=== PATIENT | female | born 1980 | race Caucasian/White ===

== ENCOUNTER 2016-10-01 13:00 | Emergency (ER) | payer OTHER, MEDICAID ==
[~2016-10-01] VITALS: Ht 160 cm; Wt 60.0 kg
[~2016-10-01 13:00] MED LIST: IBUP-232 PO
[2016-10-01 13:01] VITALS: BP 150/84; PULSE 89; RESP 15; TEMP 98.3; O2SAT 99
--- NOTE | 2016-10-01 13:54 | PD ---
HPI . right wrist pain Chief Complaint: Musculoskeletal Complaint Time Seen by Provider: 13:54 Travel History International Travel<30 days: No Contact w/Intl Traveler<30days: No Traveled to known affect area: No History of Present Illness HPI 36-year-old female with no past medical history of complaints of right wrist pain since yesterday. Patient was trying to do something in her children's room when she accidentally fell on an outstretched wrist. She is now reporting pain in the right wrist at the distal ulna. She says the pain is pretty intense with movement. She has had decreased swimming professor strength and has had difficulty doing chores and combing her hair. She is left handed dominant. PFS Past Medical History Arthritis: No Asthma: No Autoimmune Disease: No Blood Disorders: No Anxiety: Yes Depression: Yes Heart Rhythm Problems: No Cancer: No Cardiovascular Problems: No High Cholesterol: No Chemotherapy: No Chest Pain: No Congestive Heart Failure: No COPD: No Cerebrovascular Accident: No Diabetes: No Diminished Hearing: Yes GERD: No Glaucoma: No Genitourinary: Yes (UTI's) Headaches: No Hepatitis: Yes (HEP C) Hiatal Hernia: No Hypertension: Yes Immune Disorder: No Kidney Stones: No Musculoskeletal: No Neurologic: No Psychiatric: No Reproductive: Yes (05/21/13 hysterect for endometriosis) Respiratory: No Migraines: No Myocardial Infarction: No Radiation Therapy: No Renal Failure: No Seizures: No Sickle Cell Disease: No Ulcer: No : 2 Para: 2 Ovarian Cysts: No Past Surgical History Abdominal Surgery: No AICD: No Appendectomy: No Arteriovenous Shunt: No Cardiac Surgery: No Section: Yes Cholecystectomy: No Ear Surgery: No Endocrine Surgery: No Eye Surgery: No Genitourinary Surgery: Yes (RIGHT IHR 1981) Gynecologic Surgery: Yes (2 c-sections 2002, 2004) Hysterectomy: Yes Insulin Pump: No Joint Replacement: No Oral Surgery: Yes (tooth extractions) Pacemaker: No Thoracic Surgery: No Other Surgery: Yes (HERNIA REPAIR WHEN A BABY) Social History Alcohol Use: No Tobacco Use: Yes (1ppd) Substance Use: No Allergies-Medications (Allergen,Severity, Reaction): Coded Allergies: No Known Allergies (Verified , 10/27/14) Reported Meds & Prescriptions Reported Meds & Active Scripts Active Ibuprofen 800 Mg Tab 800 Mg PO TID Review of Systems General / Constitutional: No: Fever Eyes: No: Visual changes HENT: No: Headaches Cardiovascular: No: Chest Pain or Discomfort Respiratory: No: Shortness of Breath Gastrointestinal: No: Abdominal Pain Genitourinary: No: Dysuria Musculoskeletal: Positive: Pain (right wrist pain) Skin: No Rash Neurologic: No: Weakness Psychiatric: No: Depression Endocrine: No: Polydipsia Hematologic/Lymphatic: No: Easy Bruising Physical Exam Narrative GENERAL: AAO x 3, no acute distress, Well-nourished, well-developed patient. SKIN: Warm and dry. No visible rashes or bruising. HEAD: Normocephalic and atraumatic. EYES: No scleral icterus. No injection or drainage. ENT: No nasal drainage noted. Airway patent. NECK: Supple, trachea midline. No JVD. CARDIOVASCULAR: Regular rate and rhythm without murmurs, gallops, or rubs. RESPIRATORY: Breath sounds equal bilaterally. No accessory muscle use. No rhonchi or rales. GASTROINTESTINAL: Abdomen soft, non-tender, nondistended. EXTREMITIES: No cyanosis. Right distal wrist ulna slightly edematous. There is point tenderness present at right distal ulna. Range of motion is diminished secondary pain. Pulses are intact. Sensation is normal. Record Producer strength is diminished. BACK: Nontender without obvious deformity. No CVA tenderness. PSYCH: AAO x 3, normal affect. Data Data Last Documented VS Vital Signs Date Time Temp Pulse Resp B/P Pulse Ox O2 Delivery O2 Flow Rate FiO2 10/01/16 13:01 98.3 89 15 150/84 99 Orders Wrist, Complete ([id number]) (10/01/16 13:58) Ibuprofen (Motrin) (10/01/16 14:00) ^ Alireza Bandage (10/01/16 15:10) [facility] Medical Decision Making Medical Screen Exam Complete: Yes Emergency Medical Condition: Yes Medical Record Reviewed: Yes Differential Diagnosis Wrist contusion, wrist fracture, less likely dislocation, tendinitis Narrative Course 36-year-old female with no past medical history of complaints of right wrist pain since yesterday. Patient was trying to do something in her children's room when she accidentally fell on an outstretched wrist. She is now reporting pain in the right wrist at the distal ulna. She says the pain is pretty intense with movement. She has had decreased swimming professor strength and has had difficulty doing chores and combing her hair. She is left handed dominant. Patient seen and examined. She has some point tenderness to the right distal ulna. There is also some edema to this area. I will go ahead and check x-ray to rule out any bony abn. X-ray resulted and negative for acute deformity or fracture. Alireza wrap provided. Ibuprofen Rx provided. Advise RICE Discussed f/u with PCP and Hand if problems persist. Patient verbalized understanding of instructions, questions were answered, and thanked me for their care. I advised them if their condition worsens, please return to the nearest emergency room for further care. Diagnosis Primary Impression: Wrist pain, right Patient Instructions: General Instructions Additional Instructions: Rest the affected area as much as possible. Do this for the next 2-3 days. Ice this area for 15-20 minutes at a time. You can do this every hour or as much as tolerated. Keep this area compressed (alireza bandage) as tolerated. Elevate this area. Use ibuprofen as needed for pain and inflammation. Please return to emergency department if your symptoms return or worsen. Follow up with your primary care provider. Take medications as prescribed. Med/Other Pt SpecificInfo: Prescription(s) given Scripts Ibuprofen 800 Mg [id number] Mg PO TID #21 TAB Prov:Carlos A Trejo MD 10/01/16 Disposition: 01 DISCHARGE HOME Condition: Stable Anitha Urias October 01, 2016 13:54
[2016-10-01] MEDS ORDERED: IBUPROFEN 800 MG TAB PO ONE (14:00)
--- NOTE | 2016-10-01 15:06 | RADRPT ---
EXAM DATE/TIME: 10/01/2016 14:14 [facility] COMPARISON: No previous studies available for comparison. INDICATIONS : Right wrist pain after falling yesterday. MEDICAL HISTORY : None. SURGICAL HISTORY : None. ENCOUNTER: Initial ACUITY: 2 days PAIN SCORE: 8/10 LOCATION: Left lateral wrist. FINDINGS: Three view examination of the right wrist demonstrates no soft tissue swelling, dislocation, or fract ure. The carpal bones are in normal alignment. The joint spaces are maintained. Bony mineralizatio n is normal. CONCLUSION: Unremarkable examination of the right wrist. Surjit Eduardo MD on October 01, 2016 at 15:03 Board Certified Radiologist. This report was verified electronically.
[2016-10-01] MEDS ORDERED: IBUP800T23 PO (15:14)
== END 2016-10-01 15:32 | disposition home or self-care (01) ==
LOC: NEPK 13:00
DX: M25.531 Pain in right wrist (principal)
CPT/HCPCS: 73110; 99283

== ENCOUNTER 2016-10-04 14:23 | Emergency (ER) | payer OTHER, MEDICAID ==
[~2016-10-04] VITALS: Ht 160 cm; Wt 56.5 kg
[~2016-10-04 14:23] MED LIST changes: -IBUP-232 PO; +IBUP800T23 PO
--- NOTE | 2016-10-04 14:34 | PD ---
HPI Chief Complaint: Pain: Acute or Chronic Time Seen by Provider: 14:34 Travel History International Travel<30 days: No Contact w/Intl Traveler<30days: No Traveled to known affect area: No History of Present Illness HPI 36-year-old female presents to emergency Department with sudden onset pain, swelling, and erythema to the left dorsal lateral wrist and proximal hand since yesterday. Patient denies any specific injury or IV drug use. She states she woke up with it. She denies fever, chills, or other symptoms. She has decreased range of motion secondary to pain. She denies numbness or tingling. She denies any other current symptoms. No known drug allergies. Patient has history IV drug use and hepatitis, but currently not treated. PFSH Past Medical History Arthritis: No Asthma: No Autoimmune Disease: No Blood Disorders: No Anxiety: Yes Depression: Yes Heart Rhythm Problems: No Cancer: No Cardiovascular Problems: No High Cholesterol: No Chemotherapy: No Chest Pain: No Congestive Heart Failure: No COPD: No Cerebrovascular Accident: No Diabetes: No Diminished Hearing: Yes Gastrointestinal Disorders: No GERD: No Glaucoma: No Genitourinary: Yes (UTI's) Headaches: No Hepatitis: Yes (HEP C) Hiatal Hernia: No Heparin Induced Thrombocytopen: No Hypertension: No Immune Disorder: No Implanted Vascular Access Dvce: No Kidney Stones: No Musculoskeletal: No Neurologic: No Psychiatric: No Reproductive: Yes (05/21/13 hysterect for endometriosis) Respiratory: No Migraines: No Myocardial Infarction: No Radiation Therapy: No Renal Failure: No Seizures: No Sickle Cell Disease: No Ulcer: No : 2 Para: 2 Ovarian Cysts: No Past Surgical History Abdominal Surgery: No AICD: No Appendectomy: No Arteriovenous Shunt: No Cardiac Surgery: No Section: Yes Cholecystectomy: No Ear Surgery: No Endocrine Surgery: No Eye Surgery: No Genitourinary Surgery: Yes (RIGHT IHR 1981) Gynecologic Surgery: Yes (2 c-sections 2002, 2004) Hysterectomy: Yes Insulin Pump: No Joint Replacement: No Neurologic Surgery: No Oral Surgery: Yes (tooth extractions) Pacemaker: No Thoracic Surgery: No Other Surgery: Yes (HERNIA REPAIR WHEN A BABY) Social History Alcohol Use: No Tobacco Use: Yes (1ppd) Substance Use: No Allergies-Medications (Allergen,Severity, Reaction): Coded Allergies: No Known Allergies (Verified , 10/04/16) Reported Meds & Prescriptions Reported Meds & Active Scripts Active No Active Prescriptions or Reported Medications Review of Systems Except as stated in HPI: all other systems reviewed are Neg General / Constitutional: No: Fever, Chills Eyes: No: Visual changes HENT: No: Headaches Cardiovascular: No: Chest Pain or Discomfort Respiratory: No: Shortness of Breath Gastrointestinal: No: Abdominal Pain Genitourinary: No: Dysuria Musculoskeletal: No: Pain Skin: Positive Lesions (see history of present illness.), No Rash Neurologic: No: Weakness Psychiatric: No: Depression Endocrine: No: Polydipsia Hematologic/Lymphatic: No: Easy Bruising Physical Exam Narrative GENERAL: Patient appears in moderate distress. SKIN: Warm and dry. Normal color. Normal turgor. Patient has what appear to be multiple injection site wounds to the left hand and forearm, which the patient states are from "scratches". There is mild erythema over the left dorsal lateral wrist with some induration and swelling noted. No pointing or obvious abscess appreciated. HEAD: Atraumatic. Normocephalic. EYES: Pupils equal and round. No scleral icterus. No injection or drainage. ENT: No nasal bleeding or discharge. Mucous membranes pink and moist. NECK: Trachea midline. No JVD. CARDIOVASCULAR: Regular rate and rhythm. RESPIRATORY: No accessory muscle use. Clear to auscultation. Breath sounds equal bilaterally. GASTROINTESTINAL: Abdomen soft, non-tender, nondistended. Hepatic and splenic margins not palpable. MUSCULOSKELETAL: Extremities without clubbing, cyanosis, or edema. No obvious deformities. Patient has limited range of motion of the left hand and fingers secondary to pain in the left dorsal lateral wrist. NEUROLOGICAL: Awake and alert. No obvious cranial nerve deficits. Motor grossly within normal limits. Five out of 5 muscle strength in the arms and legs. Normal speech. PSYCHIATRIC: Appropriate mood and affect; insight and judgment normal. Data Data Last Documented VS Vital Signs Date Time Temp Pulse Resp B/P Pulse Ox O2 Delivery O2 Flow Rate FiO2 10/04/16 14:36 98.1 107 18 149/99 98 MDM Medical Decision Making Medical Screen Exam Complete: Yes Emergency Medical Condition: Yes Differential Diagnosis Cellulitis. Early abscess. Probable IV drug use. Narrative Course Patient is medically stable at time of exam. Patient is given Bactrim DS twice a day 10 days. Patient is given ibuprofen 600 mg 4 times a day when necessary #40. Patient is to use hot compresses to the area and follow-up if symptoms are worsening as discussed. Diagnosis Primary Impression: Cellulitis of left arm Referrals: [facility] Patient Instructions: Cellulitis (ED), General Instructions Additional Instructions: Patient is medically stable at time of exam. Patient is given Bactrim DS twice a day 10 days. Patient is given ibuprofen 600 mg 4 times a day when necessary #40. Patient is to use hot compresses to the area and follow-up if symptoms are worsening as discussed. Med/Other Pt SpecificInfo: Prescription(s) given Scripts Ibuprofen 600 Mg [id number] Mg PO Q6H PRN (Pain/Inflammation) #40 TAB Prov:Chrissy Brink MD 10/04/16 Sulfamethoxazole-Trimethoprim (Bactrim DS)800-160 Mg Tab1 Tab PO BID #20 TAB Prov:Chrissy Brink MD 10/04/16 Disposition: 01 DISCHARGE HOME Condition: Stable Suresh Tomas October 04, 2016 14:34
[2016-10-04 14:36] VITALS: BP 149/99; PULSE 107; RESP 18; TEMP 98.1; O2SAT 98
[2016-10-04] MEDS ORDERED: BACT800T5 PO (14:43)
[2016-10-04] MEDS ORDERED: IBUP-232 PO (14:43)
== END 2016-10-04 15:00 | disposition home or self-care (01) ==
LOC: PHEFT 14:23
DX: L03.114 Cellulitis of left upper limb (principal)
CPT/HCPCS: 99282